=== PATIENT | male | born 1990 | race Caucasian/White ===

== ENCOUNTER → 2018-03-31 | Emergency (ER) | payer OTHER ==
[~2018-03-31] VITALS: Ht 182.9 cm; Wt 72.6 kg
[~2018-03-31] MED LIST: ADERALL PO; KETO10TA2 PO; NEURONTIN300 MG PO; PERCOCET 5-3251 EACH PO; POLY119PG PO; PROVENTIL0.5 ML/2.5 IH; ZOFRAN ODT4 MG PO
== END | disposition home or self-care (01) ==
LOC: ER 07:33
DX: B34.9 Viral infection, unspecified (principal)